=== PATIENT | male | born 1955 | race Asian ===

== ENCOUNTER 2018-11-14 06:54 | Day surgery (SDC) | payer OTHER ==
[~2018-11-14] VITALS: Ht 165.1 cm; Wt 73.0 kg
[~2018-11-14 06:54] MED LIST: AMIT10TA6 PO; DICLOFENAC SODIUM 0.1% 2.5 ML OPHTHALMIC SOLUTION ONE; METF-960 PO; MOXIFLOXACIN HCL 0.5% 3 ML OPHTHALMIC SOLUTION ONE; PHENYLEPHRINE HCL 2.5% 2 ML OPHTHALMIC SOLUTION ONE; RINGERS SOLUTION,LACTATED 500 ML IV ONE; TROPICAMIDE 1% 2 ML OPHTHALMIC SOLUTION ONE
[2018-11-14] MEDS ORDERED: HYALURONATE SODIUM 12 MG/ML 0.8 ML SYRINGE IO ONE (06:55)
[2018-11-14] MEDS ORDERED: LIDOCAINE/PF 1% 2 ML VIAL IM ONE (06:55)
[2018-11-14] MEDS ORDERED: HYALURONATE SOD/CHONDROITIN SOD 0.5 ML VIAL IO ONE (06:55)
[2018-11-14] MEDS ORDERED: MIDAZOLAM HCL 2 MG/2 ML VIAL IVP ONE (06:55)
[2018-11-14] MEDS ORDERED: DEXAMETHASONE SOD PHOS 4 MG/ML VIAL IVP ONE (06:55)
[2018-11-14] MEDS ORDERED: FentaNYL CITRATE-PF 100 MCG/2 ML VIAL IVP ONE (06:55)
[2018-11-14] MEDS ORDERED: POVIDONE-IODINE 10% 15 ML SOLUTION UD TP ONE (06:55)
[2018-11-14] MEDS ORDERED: DICLOFENAC SODIUM 0.1% 2.5 ML OPHTHALMIC SOLUTION OD ONE (07:00)
[2018-11-14] MEDS ORDERED: MOXIFLOXACIN HCL 0.5% 3 ML OPHTHALMIC SOLUTION OD ONE (07:00)
[2018-11-14] MEDS ORDERED: RINGERS SOLUTION,LACTATED 500 ML IV ONE (07:00)
[2018-11-14] MEDS: PHENYLEPHRINE HCL 2.5% 2 ML OPHTHALMIC SOLUTION OD SCH ×2 (07:36→07:43)
[2018-11-14] MEDS: TROPICAMIDE 1% 2 ML OPHTHALMIC SOLUTION OD SCH ×2 (07:36→07:43)
[2018-11-14 07:59] LABS: GLUCOMETER DEV NAME(LOC) SDS.; GLUCOSE,POINT OF CARE 114 MG/DL (70-110)
== END 2018-11-14 11:20 | disposition home or self-care (01) ==
LOC: SURGERY 06:54
PROVIDERS: ATTEND Specialist
DX: E11.36 Type 2 diabetes mellitus with diabetic cataract (principal); H25.13 Age-related nuclear cataract, bilateral; E78.00 Pure hypercholesterolemia, unspecified
CPT/HCPCS: 66984; 82962; C1780; J1100; J2250; J3010; J3490 ×2; J7120